=== PATIENT | male | born 1940 | race Two or more races ===

== ENCOUNTER 2020-11-16 10:57 | Inpatient (IN) | payer OTHER ==
[~2020-11-16] VITALS: Ht 175.3 cm; Wt 72.6 kg
[2020-11-16] MEDS ORDERED: COZAAR25 MG (11:47)
[2020-11-16] MEDS ORDERED: SIMVASTATIN5 MG (11:47)
[2020-11-16] MEDS ORDERED: GLIMEPIRIDE2 MG (11:47)
[2020-11-16] MEDS ORDERED: LANTUS SOL100 UNIT/1 (11:48)
[2020-11-16] MEDS ORDERED: ADULT LOW DOSE81 M1 PO (11:51)
[2020-11-16] MEDS ORDERED: PLAVIX75 MG PO (11:51)
[2020-11-19] MEDS ORDERED: ELIQUIS2.5 MG PO (11:56)
[2020-11-19] MEDS ORDERED: ULTRACET PO (11:56)
== END 2020-11-19 19:19 | disposition home or self-care (01) | DRG 482 ==
LOC: ER 10:57 → O/R 23:57 → SEC-K 23:57 → O/R 11-17 11:51 → SURH 11-17 15:29
PROVIDERS: ADMIT Orthopaedic Surgery; ATTEND Orthopaedic Surgery
PROC: 0QS704Z Reposition Left Upper Femur with Internal Fixation Device, Open Approach (ICD-10-PCS; principal; 2020-11-17 12:00)
DX: S72.092A Other fracture of head and neck of left femur, initial encounter for closed fracture (principal); M81.8 Other osteoporosis without current pathological fracture; W18.39XA Other fall on same level, initial encounter